=== PATIENT | female | born 1995 | race Caucasian/White ===

== ENCOUNTER 2017-10-29 06:45 | Emergency (ER) | payer OTHER ==
[~2017-10-29] VITALS: Ht 170.2 cm; Wt 99.8 kg
[~2017-10-29 06:45] MED LIST: AUGMENTIN 500M500 MG PO; MOTRIN 400 MG400 MG PO
[2017-10-29 06:53] VITALS: BP 113/70
--- NOTE | 2017-10-29 07:44 | ED CARDIAC/CP/PALPITATIONS ---
History of Present Illness General Chief Complaint: General Adult Stated Complaint: RIB PAIN +11 WEEKS PREG Source: patient, family, old records Exam Limitations: no limitations Vital Signs & Intake/Output Vital Signs & Intake/Output Vital Signs Date Time Temp Pulse Resp B/P B/P Pulse O2 O2 Flow FiO2 Mean Ox Delivery Rate 10/29 0653 97.2 87 18 113/70 97 Room Air Allergies Coded Allergies: NO KNOWN ALLERGIES (12/15/14) Reconcile Medications Augmentin (Augmentin 500-125 Tablet) 500 MG-125 MG TABLET 1 TAB PO BID acute otitis media right ear Ibuprofen (Motrin 400 MG Tab) 400 MG TABLET 1 TAB PO Q8 otalgia Triage Note: PT FROM HOME C/O BILATERAL "UNDER BOOB" FLANK PAIN RADIATING TO BACK PER PT. PT STATES THIS HAPPENED 2X WEEKS AGO WELL, "IT WENT AWAY AND NOW ITS BACK" PT STATES AROUND 0515 SHE AWOKE WITH THE PAIN, PER PT "I WASNT EVEN ABLE TO TALK OR MOVE IT WAS SO PAINFUL" PT IS A&0X3, AMBULATORY, NO DISTRESS AT THIS TIME, 2/10 PAIN. PT STATES "IM 11 WEEKS WELL" PT HAS NOT SEEN AN OBGYN D/T PT DOES NOT LIVE IN [place] AND HAS ONLY BEEN VISITING FOR A FEW WEEKS. PT DOESNT RECALL LMP SHE GUESSES AROUND 08/13/17. Triage Nurses Notes Reviewed? yes Onset: Just prior to arrival Duration: hour(s):, constant, gone now Timing: recent history Quality/Severity: severe, aching Location: central Radiation: back Activities at Onset: sleep Prior Chest Pain/Card Workup: no prior cardiac workup Modifying Factors: Improves With: rest. Nitro Today/Relief: no nitro taken today Aspirin Today: no aspirin today Associated Symptoms: abdominal pain, back pain, nausea/vomiting LMP (ages 10-50): 11 weeks : Yes Patient currently breastfeeds: No HPI: 2 weeks prior to admission patient complains of back pain radiating to the epigastric area associated with nausea lasting a few minutes and resolved. 2 hours prior to admission patient awoke with similar pain more severe achy constant worse with movement cough lasting a few minutes and resolved. She denies fever chills vomiting diarrhea shortness of breath headache dysuria rash bleeding vaginal discharge. Past History Travel History Traveled to [place] past 21 day No Medical History Any Pertinent Medical History? see below for history Neurological: HEADACHE, EAR PAIN EENT: NONE Cardiovascular: NONE Respiratory: NONE Gastrointestinal: NONE Hepatic: NONE Renal: NONE Musculoskeletal: NONE Psychiatric: NONE Endocrine: NONE Blood Disorders: NONE Surgical History Surgical History: N Psychosocial History What is your primary language Faroese Tobacco Use: Never used Family History Family History, If Any: FATHER FH: diabetes mellitus FH: HTN (hypertension) Heart disease Relation not specified for: *No pertinent family history Hx Contributory? No Review of Systems Review of Systems Constitutional: Reports: no symptoms. EENTM: Reports: no symptoms. Respiratory: Reports: no symptoms. Cardiovascular: Reports: see HPI, chest pain. GI: Reports: see HPI, abdominal pain. Genitourinary: Reports: no symptoms. Musculoskeletal: Reports: see HPI, back pain. Skin: Reports: no symptoms. Neurological/Psychological: Reports: no symptoms. Hematologic/Endocrine: Reports: no symptoms. Immunologic/Allergic: Reports: no symptoms. All Other Systems: Reviewed and Negative Physical Exam Physical Exam General Appearance: well developed/nourished, alert, awake, anxious, comfortable , obese Head: atraumatic, normal appearance Eyes: Bilateral: normal appearance, PERRL, EOMI. Ears, Nose, Throat: normal pharynx, normal ENT inspection, hearing grossly normal Neck: normal inspection, supple, full range of motion, no midline tenderness Respiratory: normal breath sounds, chest non-tender, no respiratory distress, quiet respiration, lungs clear Cardiovascular: regular rate/rhythm, normal peripheral pulses, norml femoral pulses equa Peripheral Pulses: 4+ carotid (R), 4+ carotid (L) Gastrointestinal: normal bowel sounds, soft, non-tender, no organomegaly Back: normal inspection, normal range of motion, no vertebral tenderness Extremities: normal inspection, normal capillary refill, normal range of motion, no edema, no ligament instability Neurologic/Psych: no motor/sensory deficits, awake, alert, oriented x 3, normal gait, normal mood/affect, manager applied II-XII nml as tested Reflexes: 2+: bicep (R), bicep (L). Skin: intact, normal color, warm/dry Lymphatic: no anterior cervical shelbie Core Measures ACS in differential dx? No CVA/TIA Diagnosis No Sepsis Present: No Sepsis Focused Exam Completed? No Progress Differential Diagnosis: cholecystitis, costochondritis, pancreatitis Plan of Care: Laboratory Tests 10/29/17 0716: Lipase Cancelled, CBC w Diff Cancelled, WBC Cancelled, RBC Cancelled, Hgb Cancelled, Hct Cancelled, MCV Cancelled, MCH Cancelled, MCHC Cancelled, RDW Cancelled, Plt Count Cancelled, MPV Cancelled, Urine Color Cancelled, Urine Clarity Cancelled, Urine pH Cancelled, Ur Specific [place] Cancelled, Urine Protein Cancelled, Urine Ketones Cancelled, Urine Nitrite Cancelled, Urine Bilirubin Cancelled, Urine Urobilinogen Cancelled, Ur Leukocyte Esterase Cancelled, Ur Microscopic Cancelled, Urine Hemoglobin Cancelled, Urine Glucose Cancelled Initial ED EKG: none Comments: Patient declined workup and will go to [place] as that is where her insurance is valid. Departure Departure Time of Disposition: 734 Disposition: HOME OR SELF CARE Condition: Stable Clinical Impression Primary Impression: Secondary Impressions: Back pain, Chest pain Referrals: Patient Has No Primary Care Dr (PCP/Family) Departure Forms: Customer Survey General Discharge Information Critical Care Note Critical Care Note Critical Care Time: non-applicable
== END 2017-10-29 07:45 ==
LOC: ERH 06:45
DX: O26.91 Pregnancy related conditions, unspecified, first trimester (principal); M54.9 Dorsalgia, unspecified; R07.9 Chest pain, unspecified